=== PATIENT | male | born 1990 | race Caucasian/White ===

== ENCOUNTER 2019-02-20 14:01 | Emergency (ER) | payer OTHER ==
[~2019-02-20] VITALS: Ht 167.6 cm; Wt 63.0 kg
[2019-02-20 14:03] VITALS: BP 119/79; Ht 167.6 cm; Wt 63.0 kg
== END 2019-02-20 15:02 | disposition home or self-care (01) ==
LOC: ED 14:01
DX: T15.92XA Foreign body on external eye, part unspecified, left eye, initial encounter (principal); H04.122 Dry eye syndrome of left lacrimal gland